=== PATIENT | female | born 1990 | race African-American/Black ===

== ENCOUNTER 2018-04-14 20:32 | Emergency (ER) | payer SELFPAY ==
[2018-04-14 20:36] VITALS: BP 126/83; PULSE 89; TEMP 98.2; BMI 40.2
--- NOTE | 2018-04-14 20:52 | PDOC ---
History of Present Illness - General Chief Complaint: Cold Symptoms Stated Complaint: COUGH Time Seen by Provider: 04/14/18 20:44 - History of Present Illness Initial Comments: 04/14/18 20:51 27 y/o F w/o comorbities and cough x5 d subjective fever at home. Past History - Past Medical History Allergies/Adverse Reactions: Allergies Allergy/AdvReac Type Severity Reaction Status Date / Time No Known Allergies Allergy Verified 04/14/18 20:36 Home Medications: Ambulatory Orders Ibuprofen 200 mg PO ASDIR 04/14/18 COPD: No - Suicide/Smoking/Psychosocial Hx Smoking History: Never smoked Review of Systems - Review of Systems Constitutional: Yes: Fever Respiratory: Yes: Cough All Other Systems: Reviewed and Negative *Physical Exam - Vital Signs Last Vital Signs Temp Pulse Resp BP Pulse Ox 98.2 F 89 18 126/83 98 04/14/18 20:33 04/14/18 20:33 04/14/18 20:33 04/14/18 20:33 04/14/18 20:33 - Physical Exam Comments: HEAD: NC/AT EYES: Conjuntiva clear Ears: Canals and TM's normal NOSE: No d/c THROAT: Moist mucous membrances, oral pharanx clear, uvula midline NECK: Supple without adenopathy CARDIAC: S1 S2 LUNGS: CTA Full and Equal breath sounds ABDOMEN: Soft NT ND MS: Full ROM in all joints without edema NEUROLOGIC: No gross sensory or motor deficits, NVID SKIN: Normal color and temperature no lesions or rashes 04/14/18 20:57 Medical Decision Making - Medical Decision Making This is a benign examination and this 27-year-old with a cough her 5 days and subjective fever. I've instructed to follow-up with the primary care physician in one to 2 days for further evaluation and treatment options should her symptoms persist 04/14/18 20:57 *DC/Admit/Observation/Transfer Diagnosis at time of Disposition: URI (upper respiratory infection) - Discharge Dispostion Disposition: HOME Condition at time of disposition: Stable Decision to Admit order: No - Referrals Referrals: Gavino Lai [Non Staff, Medical] - - Patient Instructions Printed Discharge Instructions: DI for Viral Upper Respiratory Infection -- Adult Additional Instructions: Return to the emergency room should symptoms worsen or go unresolved. Follow-up with the primary care physician in one to 2 days for further evaluation and treatment options. May continue to take Tylenol and Motrin as directed as well as cough syrup as you have been doing. - Post Discharge Activity
== END 2018-04-14 21:31 | disposition home or self-care (01) ==
LOC: JERFT 20:32
DX: J06.9 Acute upper respiratory infection, unspecified (principal)
CPT/HCPCS: 99281-25